=== PATIENT | female | born 1960 | race Caucasian/White ===

== ENCOUNTER 2017-09-06 19:09 | Emergency (ER) | payer SELFPAY ==
[~2017-09-06] VITALS: Ht 170.2 cm; Wt 56.7 kg
--- NOTE | 2017-09-06 19:30 | NUR ---
Dr Best at bedside to evaluate patient.
[2017-09-06] MEDS ORDERED: HYDROCODONE/APAP 5/325MG 1 EACH TABLET ONE (19:57)
[2017-09-06] MEDS: HYDROCODONE/APAP 5/325MG 1 EACH TABLET PO ONE (20:00)
== END 2017-09-06 20:06 | disposition home or self-care (01) ==
LOC: ER 19:13
DX: S80.02XA Contusion of left knee, initial encounter (principal); S80.01XA Contusion of right knee, initial encounter; Z88.8 Allergy status to other drugs, medicaments and biological substances; V43.62XA Car passenger injured in collision with other type car in traffic accident, initial encounter; Y93.89 Activity, other specified; Y92.89 Other specified places as the place of occurrence of the external cause; Y99.8 Other external cause status
CPT/HCPCS: 99283; A4606; A6402; Z7610